=== PATIENT | female | born 1990 | race Two or more races ===

== ENCOUNTER 2024-11-13 14:00 | Outpatient (RCR) | payer MEDICAID, SELFPAY ==
--- NOTE | 2024-11-03 14:43 | PTNOTE_ITS ---
PT OP Initial Eval Patient Information Visit Reasons: Right knee pain Medical Diagnosis: M23.8x1 Treatment Dx #1: Right Knee Pain Start of Care: 11/03/24 Date of Onset: Apr 2024 Smoking Status Smoking Status: Never smoker Initial Assessment Subjective: Pt is a 34 y/o female reports of chronic right knee pain since Apr 2024 where she hit the corner of her bed. Pt still has intermittent knapp (6/10) around the knee cap. Pt has limitation with squatting, kneeling, stairs, steps, walking, working out, and performing recreational activities. Objective: Right Knee AROM: all motions are WNL Right Knee MMTs: grossly 4-/5 Right Hip MMTs: grossly 3+/5 Special Test (+) ant compression test Assessment: Pt demonstrate right knee pain consistent with patellofemoral syndrome leading to difficulty with ADLs. Pt will benefit from physical therapy to increase ROM, strength, and work on stability. Short Term and [employer] Goals 1) Decrease knee pain to 2/10 in 6 wks to be able to perform work out routines with less limitation 2) Increase right knee MMTs grossly to 4/5 in 6 wks to be able to perform chores 3) Increase right hip MMTs grossly 4-/5 in 6 wks to be able to perform recreational activities 4) Indep with HEP Treatment Plan 1) Manual Therapy 2) Therapeutic Activities 3) Therapeutic Exercises 4) Modalities (ice, heat) 5) Balance Training Frequency and Duration: 2 x wk for 6 wks Certification Dates: 11/03/24 to 02/03/25 Procedure Charges OP PT Eval Mod Complex 30 minutes: Yes
--- NOTE | 2024-11-11 14:28 | PT.ODAYNRPT ---
PT Outpatient Daily Note OP Daily Note Outpatient Physical Therapy Treatment Date: 11/11/24 Visit Reasons: Right knee pain Subjective: Pt's right knee is better. Pt mentioned that she's now having hip and ankle pain. Objective: Please see flow chart for list of ther ex performed Assessment: tolerate open chain exercises with minimal pain Plan: Continue with PT Length of Time (minutes) of Treatment: 30 Minutes Procedure Charges Therapeutic Exercise 30 minutes: Yes
--- NOTE | 2024-11-13 14:31 | PT.ODAYNRPT ---
PT Outpatient Daily Note OP Daily Note Outpatient Physical Therapy Treatment Date: 11/13/24 Visit Reasons: Right knee pain Subjective: Pt reports R knee is still painful, c/o pain deep pointing medial knee. Objective: Please see flow sheet for ther ex list. Assessment: Interventions completed with minimal pain. Plan: Continue wit POC. Length of Time (minutes) of Treatment: 30 Minutes Procedure Charges Therapeutic Exercise 30 minutes: Yes
== END 2024-11-15 23:59 | disposition home or self-care (01) ==
LOC: CPTX 14:00
PROVIDERS: PCP Physician Assistant; Referring Provider Physician Assistant; Visit Provider Physician Assistant
DX: M25.561 Pain in right knee (principal); G89.29 Other chronic pain; M23.8X1 Other internal derangements of right knee; R26.2 Difficulty in walking, not elsewhere classified
CPT/HCPCS: 97110; 97162

== ENCOUNTER 2024-11-20 15:30 | Outpatient (RCR) | payer MEDICAID, SELFPAY ==
--- NOTE | 2024-11-18 15:52 | PT.ODAYNRPT ---
PT Outpatient Daily Note OP Daily Note Outpatient Physical Therapy Treatment Date: 11/18/24 Visit Reasons: RT knee pain Subjective: Pt's knee pain is about the same. No change in overall pain lately. Objective: Please see flow chart for list of ther ex performed Assessment: no change in knee pain post PT session Plan: Conitnue with PT Length of Time (minutes) of Treatment: 30 Minutes Procedure Charges Therapeutic Exercise 30 minutes: Yes
--- NOTE | 2024-11-20 15:35 | PT.ODS1RPT ---
PT OP Progress/Discharge Note Date of Service: 11/20/24 Progress Note/DC Note Progress Note/Discharge Note: DC Note Patient Information Visit Reasons: RT knee pain Medical Diagnosis: M23.8x1 Treatment Dx #1: Right Knee Pain Service Continue Service or Discharge: Discharge Discharge Date: 11/20/24 Status Subjective: Pt's knee is the same since starting physical therapy. Pt continues to have popping and clicking of the knee leading to difficulty with ADLs. Pt will like to stop physical therapy and follow up with MD Objective: Right Knee AROM: all motions are WNL Right Knee MMTs: grossly 4-/5 Right Hip MMTs: grossly 3+/5 Special Test (+) ant compression test (+) [place] Assessment: Pt demonstrate functional right knee mobility and strength, however, no change in knee pain leading to difficulty with ADLs. Pt will no longer benefit from physical therapy due to plateau towards goals. Recommend knee MRI to help rule in/out nature of pain. Pt was instructed on HEP last session and educated to continue exercises to maintain overall mobility. Pt performed all exercises safely, thank you for your referrals. Plan: D/C home with HEP and follow up with MD Recommend knee MRI Procedure Charges Therapeutic Exercise 30 minutes: Yes
== END 2024-12-15 23:59 | disposition home or self-care (01) ==
LOC: CPTX 15:30
PROVIDERS: PCP Physician Assistant; Referring Provider Physician Assistant; Visit Provider Physician Assistant
DX: M25.561 Pain in right knee (principal); R26.2 Difficulty in walking, not elsewhere classified; G89.29 Other chronic pain; M23.8X1 Other internal derangements of right knee
CPT/HCPCS: 97110

== ENCOUNTER → 2025-02-26 | Outpatient (CLI) | payer MEDICAID, SELFPAY ==
--- NOTE | 2025-02-26 09:30 | XR_ITS ---
Exam: MRI knee without contrast, February 26, 2025 1032 hours INDICATIONS: Joint popping swelling and pain beginning 6 months ago Date and time of exam: February 26, 2025 1032 hours Technique: Multiple axial, coronal, and sagittal sections on the knee have been obtained. T2-Weighted sagittal, fat-suppressed images, TR 3,500, TE 62, T2 weighted coronal fat-saturated images, TR 3,500, TE 62 Proton density sagittal sections, TR 1800, TE 31. T-1 weighted coronal images, TR 524, TE 13.0 Findings: Medial meniscus anterior horn mild truncation. Medial meniscus, body intact. Posterior horn medial meniscus intact. Lateral meniscus anterior horn is intact Lateral meniscus, body is intact Posterior horn lateral meniscus is intact Anterior cruciate ligament high-grade sprain Posterior cruciate ligament appears intact. Knee effusion is small. Quadriceps and patellar tendons appear intact. There is no evidence of tendinosis. Inflammatory change or fracture of Hoffa's fat pad is not seen. Medial patellar facet demonstrates no thinning. Lateral patellar facet cartilage demonstrates no thinning. Trochlear cartilage demonstrates no thinning. Marrow signal adequate. Medial collateral ligament appears intact. No meniscocapsular separation is seen. Illiotibial band and fibular collateral ligament are intact. Biceps femoris tendons appear intact. Medial femoral condylar articular cartilage demonstrates no thinning. Lateral femoral condylar articular cartilage demonstratesno thinning. Tibial plateau cartilage demonstrates no thinning. Impression: Tear of the anterior horn medial meniscus High-grade sprain anterior cruciate ligament
== END | disposition home or self-care (01) ==
PROVIDERS: PCP Physician Assistant; Referring Provider Physician Assistant; Visit Provider Physician Assistant
DX: S83.241A Other tear of medial meniscus, current injury, right knee, initial encounter (principal); S83.511A Sprain of anterior cruciate ligament of right knee, initial encounter; X58.XXXA Exposure to other specified factors, initial encounter
CPT/HCPCS: 73721